=== PATIENT | female | born 1985 | race Caucasian/White ===

== ENCOUNTER 2022-11-27 08:50 | Inpatient (IN) | payer OTHER ==
[2022-11-27] MEDS ORDERED: ELECTROLYTE-148 SOLN 500 ML IV ONE (10:03)
[2022-11-27] MEDS ORDERED: CITRIC ACID/SODIUM CITRATE 30 ML UNIT-DOSE CUP PO ONE (10:03)
[2022-11-27 10:42] VITALS: BMI 26.1
[2022-11-27 11:08] LABS: BASO % 0.7 % (0-2.0); EOS % 0.3 % (0-4.5); HEMATOCRIT 31.3 % (32.4-45.2); HEMOGLOBIN 10.2 GM/dL (10.7-15.3); LYMPH % 14.9 % (8-40); MCH 28.4 pg (25.7-33.7); MCHC 32.5 g/dl (32.0-36.0); MEAN CELL VOLUME 87.5 fl (80-96); MEAN PLT VOLUME 9.1 fl (7.5-11.1); MONO % 6.1 % (3.8-10.2); PLATELET COUNT 242 10^3/uL (134-434); RBC 3.57 M/mm3 (3.60-5.2); RDW 14.6 % (11.6-15.6); WHITE BLOOD COUNT 11.5 K/mm3 (4.0-10.0)
[2022-11-27 11:17] LABS: INR 0.96 (0.83-1.09)
[2022-11-27 11:19] LABS: ACTIVATED PTT 25.8 SECONDS (25.2-36.5)
[2022-11-27 11:39] LABS: BLOOD UREA NITROGEN 9.6 mg/dL (7-18); CALCIUM 8.5 mg/dL (8.5-10.1)
[2022-11-27 11:42] LABS: CREATININE 0.6 mg/dL (0.55-1.3)
[2022-11-27] MEDS ORDERED: FENTANYL CITRATE/PF 50 MCG/ML VIAL ONE (11:58)
[2022-11-27] MEDS ORDERED: morphine SULFATE (PF) 1 MG/2 ML SYRINGE ONE (12:58)
[2022-11-27] MEDS ORDERED: ceFAZolin SODIUM 1 GM VIAL ONE (13:23)
[2022-11-27] MEDS ORDERED: ONDANSETRON 4 MG/2 ML VIAL ONE (13:23)
[2022-11-27] MEDS ORDERED: OXYTOCIN 10 UNITS/ML VIAL ONE (13:32)
[2022-11-27] MEDS ORDERED: KETOROLAC TROMETHAMINE 30 MG/1 ML VIAL ONE (13:33)
[2022-11-27] MEDS ORDERED: SENNOSIDES/DOCUSATE COMBO (SENNA PLUS) TABLET (UD) PO PRN (14:21)
[2022-11-27] MEDS ORDERED: ACETAMINOPHEN 1000 MG/100 ML BAG IVPB PRN (14:21)
[2022-11-27] MEDS ORDERED: IBUPROFEN 800 MG/8 ML IJ IVPB PRN (14:21)
[2022-11-27] MEDS ORDERED: ONDANSETRON 4 MG/2 ML VIAL IVPB PRN (14:21)
[2022-11-27] MEDS ORDERED: morphine SULFATE/PF 1 MG/2 ML (2cc Syringe - QUVA) EP ONE (14:21)
[2022-11-27] MEDS ORDERED: ACETAMINOPHEN 325 MG TABLET (FP) PO PRN ×3 (14:21→20:30)
[2022-11-27] MEDS ORDERED: ONDANSETRON 4 MG/2 ML VIAL IVPUSH PRN ×2 (14:21→21:00)
[2022-11-27] MEDS ORDERED: ACETAMINOPHEN 1000 MG/100 ML BAG IVPB ONE (14:24)
[2022-11-27] MEDS ORDERED: LACTATED RINGERS SOLUTION 1,000 ML IV SCH (14:30)
[2022-11-27] MEDS ORDERED: ACETAMINOPHEN INJECTION 100 ML IVPB ONE (14:48)
[2022-11-27] MEDS ORDERED: OXYTOCIN 20 UNITS in 0.9% NS 20 UNIT/1,000 ML INFUS.BAG IV ONE (14:48)
[2022-11-27] MEDS ORDERED: OXYTOCIN 20 UNITS in 0.9% NS 1000 ML INFUS.BAG IV ONE (15:30)
[2022-11-27] MEDS: SIMETHICONE 80 MG TAB.CHEW (FP) PO PRN (19:53)
[2022-11-28] MEDS: SIMETHICONE 80 MG TAB.CHEW (FP) PO PRN ×2 (05:57→16:40)
[2022-11-28 06:43] LABS: BASO % 0.7 % (0-2.0); EOS % 0.2 % (0-4.5); HEMATOCRIT 30.7 % (32.4-45.2); HEMOGLOBIN 10.1 GM/dL (10.7-15.3); LYMPH % 16.4 % (8-40); MCH 28.8 pg (25.7-33.7); MCHC 32.8 g/dl (32.0-36.0); MEAN PLT VOLUME 9.1 fl (7.5-11.1); MONO % 6.9 % (3.8-10.2); NEUT % 75.8 % (42.8-82.8); PLATELET COUNT 212 10^3/uL (134-434); RBC 3.49 M/mm3 (3.60-5.2); WHITE BLOOD COUNT 14.5 K/mm3 (4.0-10.0)
[2022-11-28] MEDS ORDERED: RHO(D) IMMUNE GLOBULIN 1,500 UNIT DISP.SYRIN IM ONE (08:00)
[2022-11-28] MEDS: PRENATAL VITAMINS W/ FOLIC ACID TABLET (FP) PO SCH (09:25)
[2022-11-28] MEDS: oxyCODONE HCL 5 MG TABLET PO PRN ×2 (09:25→16:40)
[2022-11-28] MEDS: FERROUS SO4 325 MG TABLET (FP) PO SCH (11:50)
[2022-11-28] MEDS: IBUPROFEN 600 MG TABLET (FP) PO PRN ×2 (12:41→21:18)
[2022-11-28] MEDS ORDERED: BISACODYL 10 MG SUPP.RECT RC PRN (14:21)
[2022-11-29] MEDS: IBUPROFEN 600 MG TABLET (FP) PO PRN (08:58)
[2022-11-29] MEDS: FERROUS SO4 325 MG TABLET (FP) PO SCH (08:59)
[2022-11-29] MEDS: PRENATAL VITAMINS W/ FOLIC ACID TABLET (FP) PO SCH (08:59)
[2022-11-29 09:57] VITALS: BP 94/65; PULSE 78; RESP 18; TEMP 97.6
== END 2022-11-29 12:30 | disposition home or self-care (01) | DRG 540 ==
LOC: JLDR 08:50 → J3W 16:00
PROVIDERS: ADMIT Specialist; ATTEND Specialist
PROC: 10D00Z1 Extraction of Products of Conception, Low, Open Approach (ICD-10-PCS; principal; 2022-11-27)
PROC: 0HQ7XZZ Repair Abdomen Skin, External Approach (ICD-10-PCS; 2022-11-27)
DX: O34.219 Maternal care for unspecified type scar from previous cesarean delivery (principal); Z3A.39 39 weeks gestation of pregnancy; Z37.0 Single live birth; L91.0 Hypertrophic scar
CPT/HCPCS: 36415; 59025; 80048; 85025; 85610; 85730; 86780; 86850; 86870; 86900; 86901; 86902; 86999; 88304-TC; 88307-TC; C9803-CS; J1561; U0003; U0005